=== PATIENT | female | born 1950 | race Caucasian/White ===

== ENCOUNTER 2021-06-10 16:26 | Emergency (ER) | payer MEDICARE, OTHER ==
[2021-06-10 16:37] VITALS: BP 149/69
--- NOTE | 2021-06-10 16:40 | ED Physician Documentation ---
PD HPI UPPER EXT INJURY - Stated complaint Stated Complaint: left finger lac - Chief complaint Chief Complaint: Laceration - History obtained from History obtained from: Patient - History of Present Illness Location: Left, Finger (index finger laceration with hand held varnish blender.) Type of injury: Laceration Where injury occurred: Home Timing - onset: Today Timing - details: Abrupt onset Worsened by: Palpating Associated symptoms: No: Weakness, Numbness Similar symptoms before: Has not had sx before Review of Systems Constitutional: denies: Fever, Chills Nose: denies: Rhinorrhea / runny nose, Congestion Throat: denies: Sore throat Respiratory: denies: Cough Neurologic: denies: Focal weakness, Numbness PD PAST MEDICAL HISTORY - Past Medical History Cardiovascular: None Respiratory: None Endocrine/Autoimmune: None - Allergies Allergies/Adverse Reactions: Allergies Allergy/AdvReac Type Severity Reaction Status Date / Time ibuprofen Allergy Rash Verified 06/10/21 16:38 morphine Allergy Rash Verified 06/10/21 16:38 PD ED PE NORMAL - Vitals Vital signs reviewed: Yes - General General: Alert and oriented X 3, Well developed/nourished - Derm Derm: Normal color, Warm and dry - Extremities Extremities: Other (left index finger with several stellate lacerations around the tip and into side of nailbed without avulsion of tissue nor nail. Does not involve the DIP joint and there is good ROM of the finger at joints. ) - Neuro Neuro: Alert and oriented X 3, No motor deficit, No sensory deficit Results - Vitals Vitals: Vital Signs - 24 hr 06/10/21 16:34 Temperature 36.5 C Heart Rate 64 Respiratory 16 Rate Blood Pressure 149/69 H O2 Saturation 98 Oxygen O2 Source Room air - Rads (name of study) left index finger Radiology: Prelim report reviewed (no fractures; soft tissue injury noted. ), See rad report Procedures - Laceration (location) left index finger tip Length in cm: 2 Wound type: Stellate, Into subcut fat, Clean. No: Into muscle Neurovascular status: Sensory intact, Motor intact Tendon involvement: Tendon intact Anesthesia: Lidocaine 2% (digital block) Wound preparation: Irrigated copiously NS, Wound explored, To the base. No: FB identified Skin layer closure: Nylon, Interrupted, Running, Size #-0 - enter number (4), Sutures - enter # (11) Other: Patient tolerated well, No complications, Neurovascular intact, Dressing applied, Tetanus booster given PD MEDICAL DECISION MAKING - ED course Complexity details: reviewed results, considered differential, d/w patient Departure - Departure Disposition: 01 Home, Self Care Clinical Impression: Finger laceration Qualifiers: Encounter type: initial encounter Finger: index finger Damage to nail status: with damage Foreign body presence: without foreign body Laterality: left Qualified Code(s): S61.311A - Laceration without foreign body of left index finger with damage to nail, initial encounter Condition: Stable Record reviewed to determine appropriate education?: Yes Instructions: ED Laceration Hand Comments: It is okay to wash and shower. Clean off the wound twice a day with soap and water, or peroxide and water. Apply some antibiotic ointment to it to keep it moist. Also to watch for signs of infection such as purulence, redness or increasing pain. Return to your primary care or the ER at the specified time for suture removal. Suture removal 8 to 10 days. Tylenol or ibuprofen as needed for pains. Light activity with the finger for the first several days or so at least. Discharge Date/Time: 06/10/21 18:39
[2021-06-10] MEDS ORDERED: LIDOCAINE-MPF 2% 5 ML VIAL SUBQ STA (16:52)
--- NOTE | 2021-06-10 17:35 | XRAY Report ---
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 COMPARISON: None FINDINGS: Bones: There is an incomplete cortical fracture to the base of the second distal phalanx without DIP involvement. Soft tissues: No suspicious soft tissue calcifications. Distal soft tissue laceration IMPRESSION: Incomplete cortical fracture through the base of the second distal phalanx Associated soft tissue laceration Reviewed by: Star Hutton MD on 06/10/2021 4:34 PM STARR Approved by: Star Hutton MD on 06/10/2021 4:34 PM AKCHRISTOPHER Station ID: [id number]
[2021-06-10] MEDS ORDERED: TETANUS/DIPHTHERIA/PERTUSSIS 0.5 ML SYRINGE IM ONE (18:30)
== END 2021-06-10 18:39 | disposition home or self-care (01) ==
LOC: ED 16:26
DX: S61.211A Laceration without foreign body of left index finger without damage to nail, initial encounter (principal); W27.4XXA Contact with kitchen utensil, initial encounter; Y92.009 Unspecified place in unspecified non-institutional (private) residence as the place of occurrence of the external cause; Z23 Encounter for immunization
CPT/HCPCS: 12041; 90471; 99282; 99283